=== PATIENT | male | born 1940 | race Caucasian/White ===

== ENCOUNTER 2017-03-17 06:39 | Emergency (ER) | payer MEDICARE, BC ==
[2017-03-17] MEDS ORDERED: Polyethylene Glycol 3350 Powder 17 GM Packet PO ONE (07:30)
--- NOTE | 2017-03-17 07:37 | EDM.PDOC ---
ED HPI GENERAL MEDICAL PROBLEM - General Chief Complaint: Abdominal Pain Stated Complaint: ABDOMINAL PAIN Time Seen by Provider: 03/17/17 07:20 Source of Information: Reports: Patient History Limitations: Reports: Other (No old records available) - History of Present Illness INITIAL COMMENTS - FREE TEXT/NARRATIVE: 76 [place] presents with lower abdominal pain slowly progressive over the past couple of days. No fever. Has a pHx of diverticulitis and this feels similar. Also, he has been constipated lately. Took mag citrate a couple days ago with results, none since then though. No nausea. Has a pHx of appendicitis. Onset: Gradual Onset Date: 03/14/17 Duration: Day(s):, Getting Worse Location: Reports: Abdomen Quality: Reports: Dull Severity: Moderate Improves with: Reports: Rest Worsens with: Reports: Movement Context: Reports: Other (Hx of diverticulitis) Associated Symptoms: Reports: Other (constipation) Treatments [employer]: Reports: Other (see below) (mag citrate 2 days ago) abdominal pain Pain Score (Numeric/FACES): 8 - Related Data Allergies Allergy/AdvReac Type Severity Reaction Status Date / Time No Known Allergies Allergy Verified 03/17/17 07:14 Home Meds: Home Meds Aspirin [Low Dose Aspirin EC] 81 mg PO ASDIRECTED 03/17/17 [History] Ciprofloxacin HCl [Cipro] 500 mg PO Q12H #20 tablet 03/17/17 [Rx] Lansoprazole [Prevacid] 30 mg PO DAILY 03/17/17 [History] Losartan [Cozaar] 50 mg PO BEDTIME 03/17/17 [History] Metronidazole [IJD: metroNIDAZOLE] 500 mg PO .EVERY 8 HOURS #30 tab 03/17/17 [Rx ] Past Medical History HEENT History: Reports: Impaired Vision Cardiovascular History: Reports: Hypertension Gastrointestinal History: Reports: Colon Polyp, Diverticulosis - Infectious Disease History Infectious Disease History: Reports: Chicken Pox - Past Surgical History GI Surgical History: Reports: Appendectomy, Colonoscopy Social & Family History - Tobacco Use Smoking Status *Q: Never Smoker - Caffeine Use Caffeine Use: Reports: Coffee, Tea - Recreational Drug Use Recreational Drug Use: No ED ROS GENERAL - Review of Systems Review Of Systems: See Below Constitutional: Reports: No Symptoms HEENT: Reports: No Symptoms Respiratory: Reports: No Symptoms Cardiovascular: Reports: No Symptoms GI/Abdominal: Reports: Abdominal Pain, Constipation. Denies: Black Stool, Bloody Stool, Diarrhea, Distension, Flatus, Hematemesis, Hematochezia, Melena, Nausea, Vomiting : Reports: No Symptoms Musculoskeletal: Reports: No Symptoms Skin: Reports: No Symptoms Neurological: Reports: No Symptoms Psychiatric: Reports: No Symptoms ED EXAM, GI/ABD - Physical Exam Exam: See Below Exam Limited By: No Limitations General Appearance: Alert, WD/WN, No Apparent Distress Eyes: Bilateral: Normal Appearance Ears: Normal External Exam, Normal Canal, Hearing Grossly Normal Nose: Normal Inspection, Normal Mucosa, No Blood Throat/Mouth: Normal Inspection, Normal Lips, Normal Oropharynx, Normal Voice, No Airway Compromise Head: Atraumatic, Normocephalic Neck: Normal Inspection, Supple Respiratory/Chest: No Respiratory Distress, Lungs Clear, Normal Breath Sounds, No Accessory Muscle Use Cardiovascular: Regular Rate, Rhythm, No Edema GI/Abdominal Exam: Soft, No Distention, Tender (Pain near McBurney's Point with palpation. ). No: Rigid Extremities: Normal Inspection, Normal Range of Motion, Non-Tender, No Pedal Edema Neurological: Alert, Oriented, CN II-XII Intact, Normal Cognition, No Motor/ Sensory Deficits Psychiatric: Normal Affect, Normal Mood Skin Exam: Warm, Dry, Intact, Normal Color, No Rash Lymphatic: No Adenopathy Course - Orders/Labs/Meds Labs: Laboratory Tests 03/17/17 03/17/17 Range/Units 07:35 07:35 WBC 10.3 (4.5-11.0) K/uL RBC 4.95 (4.30-5.90) M/uL Hgb 14.1 (12.0-15.0) g/dL Hct 42.0 (40.0-54.0) % MCV 85 (80-98) fL MCH 29 (27-31) pg MCHC 34 (32-36) % Plt Count 241 (150-400) K/uL C-Reactive Protein 3.72 H (0.0-0.3) mg/dL Meds: Medications Discontinued Medications Generic Name Dose Route Start Last Admin Trade Name Freq PRN Reason Stop Dose Admin Ciprofloxacin 500 mg 03/17/17 08:13 Ciprofloxacin Hcl PO 03/17/17 08:14 ONETIME ONE Metronidazole 500 mg 03/17/17 08:12 Metronidazole PO 03/17/17 08:13 ONETIME ONE Polyethylene Glycol 17 gm 03/17/17 07:30 03/17/17 07:50 Miralax PO 03/17/17 07:31 17 gm ONETIME ONE Administration Departure - Departure Time of Disposition: 08:16 Disposition: Home, Self-Care 01 Condition: Fair Clinical Impression: Diverticulitis - Discharge Information Prescriptions: Ciprofloxacin HCl [Cipro] 500 mg PO Q12H #20 tablet Metronidazole [IJD: metroNIDAZOLE] 500 mg PO .EVERY 8 HOURS #30 tab Referrals: PCP,None [Primary Care Provider] - Forms: ED Department Discharge
[2017-03-17] MEDS ORDERED: metroNIDAZOLE 250 MG Tab PO ONE (08:12)
[2017-03-17] MEDS ORDERED: Ciprofloxacin 500 MG Tab PO ONE (08:13)
== END 2017-03-17 08:28 | disposition home or self-care (01) ==
LOC: JP.ED 06:39
DX: K57.92 Diverticulitis of intestine, part unspecified, without perforation or abscess without bleeding (principal); I10 Essential (primary) hypertension; Z90.49 Acquired absence of other specified parts of digestive tract; Z79.82 Long term (current) use of aspirin; Z79.899 Other long term (current) drug therapy
CPT/HCPCS: 36415; 85027; 86140; 99284; A9270; 99283